=== PATIENT | male | born 1955 | race Caucasian/White ===

== ENCOUNTER 2016-12-03 09:29 | Emergency (ER) | payer OTHER ==
[2016-12-03 09:40] VITALS: BMI 28.0
[2016-12-03 11:23] LABS: BASO % 0.7 % (0.0-2.0); EOS # 0.1 K/uL (0.0-0.7); EOS % 1.1 % (0.0-4.0); HEMATOCRIT 48.3 % (35.0-51.0); LYMPH # 1.3 K/uL (1.0-4.3); LYMPH % 28.1 % (20.0-40.0); MEAN CELL VOLUME 90.8 fL (80.0-94.0); MEAN CORPUSCULAR HEMOGLOBIN 31.2 pg (27.0-31.0); MEAN CORPUSCULAR HGB CONC 34.4 g/dL (33.0-37.0); MEAN PLATELET VOLUME 7.4 fL (7.2-11.7); MONO # 0.4 K/uL (0.0-0.8); NRBC % 0.1 % (0.0-2.0); RED CELL DISTRIBUTION WIDTH 13.1 % (11.5-14.5); WHITE BLOOD COUNT 4.7 K/uL (4.8-10.8)
[2016-12-03 11:27] LABS: RBC URINE 1 /hpf (0-3); URINE BILIRUBIN NEGATIVE (NEGATIVE); URINE BLOOD NEGATIVE (NEGATIVE); URINE COLOR Yellow (YELLOW); URINE GLUCOSE (UA) NORMAL (Normal); URINE KETONE NEGATIVE (NEGATIVE); URINE LEUKOCYTE ESTERASE NEG Leu/uL (Negative); URINE PROTEIN NEGATIVE (NEGATIVE); URINE UROBILINOGEN NORMAL mg/dL (0.2-1.0)
[2016-12-03 11:28] LABS: CHLORIDE 94 mmol/L (98-107); POTASSIUM 4.2 mmol/L (3.6-5.2); SODIUM 134 mmol/L (132-148)
[2016-12-03 11:30] LABS: BILIRUBIN,TOTAL 0.8 mg/dL (0.2-1.3); GFR AFRICAN-AMERICAN > 60
[2016-12-03 11:31] LABS: ALB/GLOB RATIO 1.2 (1.0-2.1); ALKALINE PHOSPHATASE 79 U/L (38-126); ALT/SGPT 48 U/L (21-72); AST/SGOT 52 U/L (17-59); BLOOD UREA NITROGEN 12 mg/dL (9-20); CALCIUM 8.4 mg/dl (8.6-10.4); CARBON DIOXIDE 31 mmol/L (22-30); GLUCOSE,RANDOM 114 mg/dL (75-110); INR 1.1; TOTAL PROTEIN 7.5 g/dL (6.3-8.3)
--- NOTE | 2016-12-03 11:53 | CT ---
PROCEDURE: CT HEAD WITHOUT CONTRAST. HISTORY: near syncope COMPARISON: None available. TECHNIQUE: Axial computed tomography images were obtained through the head/brain without intravenous contrast. Radiation dose: Total exam DLP = 863.09 mGy-cm. This CT exam was performed using one or more of the following dose reduction techniques: Automated exposure control, adjustment of the mA and/or kV according to patient size, and/or use of iterative reconstruction technique. FINDINGS: HEMORRHAGE: No intracranial hemorrhage. BRAIN: No mass effect or edema. The marie-white matter differentiation appears intact. Please note that MRI with diffusion imaging is more sensitive in the detection of acute ischemic event. VENTRICLES: No hydrocephalus. CALVARIUM: Unremarkable. PARANASAL SINUSES: Unremarkable as visualized. No significant inflammatory changes. MASTOID AIR CELLS: Unremarkable as visualized. No inflammatory changes. OTHER FINDINGS: None. IMPRESSION: No acute intracranial pathology identified.
--- NOTE | 2016-12-03 12:53 | C.PDOC ---
History Of Present Illness The patient, a 61 y/o male, presents to the ED for evaluation of lightheaded and dizziness which he experiences with walking for the past week. Patient denies headache, chest pain, shortness of breath, extremity numbness/weakness. Chief Complaint (Nursing): Dizziness/Lightheaded History Per: Patient History/Exam Limitations: no limitations Onset/Duration Of Symptoms: Other (1 week ) Current Symptoms Are (Timing): Still Present Activity At Onset Of Symptoms: Walking Associated Symptoms Preceding Syncopal Episode: No Predromal Symptoms (Sudden Onset) Seizure Or Post-ictal Symptoms: None Possible Causative Factor(s): Lightheaded W/Exertion Fall Associated With With Symptoms: No Additional History Per: Patient Past Medical History Reviewed: Historical Data, Nursing Documentation, Vital Signs Vital Signs: Last Vital Signs Temp 98.2 F 12/03/16 13:36 Pulse 64 12/03/16 13:36 Resp 20 12/03/16 13:36 BP 128/83 12/03/16 13:36 Pulse Ox 96 12/03/16 14:05 - Medical History PMH: COPD, Deep Vein Thrombosis, Sleep Apnea Surgical History: No Surg Hx Family History: States: Unknown Family Hx - Social History Hx Alcohol Use: No Hx Substance Use: No - Immunization History Hx Tetanus Toxoid Vaccination: No Hx Influenza Vaccination: No Hx Pneumococcal Vaccination: No Review Of Systems Except As Marked, All Systems Reviewed And Found Negative. Cardiovascular: Negative for: Chest Pain Respiratory: Negative for: Shortness of Breath Neurological: Positive for: Dizziness, Other (+lightheadedness). Negative for: Weakness, Numbness Physical Exam - Physical Exam Appears: Non-toxic, No Acute Distress Skin: Normal Color, Warm, Dry Head: Atraumatic, Normacephalic Eye(s): bilateral: Normal Inspection, PERRL, EOMI Oral Mucosa: Moist Neck: Normal ROM, Supple Chest: Symmetrical, No Deformity, No Tenderness Cardiovascular: Rhythm Regular, No Murmur Respiratory: Normal Breath Sounds, No Rales, No Rhonchi, No Wheezing Gastrointestinal/Abdominal: Soft, No Tenderness, No Guarding, No Rebound Back: Normal Inspection, No Vertebral Tenderness, No Paraspinal Tenderness Extremity: Normal ROM, Capillary Refill (less than 2 seconds ) Neurological/Psych: Oriented x3, Normal Speech, Normal Cognition, Other (no focal deficits ) Gait: Steady ED Course And Treatment - Laboratory Results Result Diagrams: 12/03/16 11:13 12/03/16 11:13 O2 Sat by Pulse Oximetry: 96 (on RA) Pulse Ox Interpretation: Normal - Other Rad CXR X-Ray: Interpreted by Me, Viewed By Me, Read By Radiologist Interpretation: Accession No. : [id number]. Patient Name / ID : KARY COLES / [id number]. Exam Date : 12/03/2016 11:15:28 ( Approved ). Study Comment : Sex / Age : M / 61Y. Creator : Blane Leon MD. Dictator : Blane Leon MD. Senior Geotechnical Engineer : Service Developer : Blane Leon MD. Approver2 : Report Date : 12/03/2016 13:45:11. My Comment : . PROCEDURE: CHEST RADIOGRAPH, 1 VIEW. HISTORY: near syncope. COMPARISON: 02/19/2016. FINDINGS: LUNGS: Clear. PLEURA: No pneumothorax or pleural fluid seen. CARDIOVASCULAR: No radiographic findings to suggest acute or significant cardiovascular disease. OSSEOUS STRUCTURES: No significant abnormalities. VISUALIZED UPPER ABDOMEN: Normal. OTHER FINDINGS: None. IMPRESSION: No active disease. No acute/significant interval changes. - CT Scan/US CT Head Other Rad Studies (CT/US): Interpreted By Me, Read By Radiologist, Radiology Report Reviewed CT/US Interpretation: Accession No. : [id number]. Patient Name / ID : KARY COLES / [id number]. Exam Date : 12/03/2016 11:44:15 ( Approved ). Study Comment : Sex / Age : M / 61Y. Creator : Lucero Haile MD. Dictator : Lucero Haile MD. Senior Geotechnical Engineer : Service Developer : Lucero Haile MD. Approver2 : Report Date : 12/03/2016 11:52:09. My Comment : . PROCEDURE: CT HEAD WITHOUT CONTRAST. HISTORY: near syncope. COMPARISON : None available. TECHNIQUE: Axial computed tomography images were obtained through the head/brain without intravenous contrast. Radiation dose: Total exam DLP = 863.09 mGy-cm. This CT exam was performed using one or more of the following dose reduction techniques: Automated exposure control, adjustment of the mA and/or kV according to patient size, and/or use of iterative reconstruction technique. FINDINGS: HEMORRHAGE: No intracranial hemorrhage. BRAIN: No mass effect or edema. The marie-white matter differentiation appears intact. Please note that MRI with diffusion imaging is more sensitive in the detection of acute ischemic event. VENTRICLES: No hydrocephalus. CALVARIUM: Unremarkable. PARANASAL SINUSES: Unremarkable as visualized. No significant inflammatory changes. MASTOID AIR CELLS: Unremarkable as visualized. No inflammatory changes. OTHER FINDINGS: None. IMPRESSION: No acute intracranial pathology identified. Progress Note: labs, CT head, CXR, and EKG ordered, results are within normal limits. Pt received Protonix PO. Case discussed with Dr. Chavez, who accepted patient for admission to [facility]. Dr. Livingston evaluated patient at bedside. Patient informed Dr. Livingston that he usually feels dizziniess after walking around [address] Livingston states patient does not require admission at this time. Patient is scheduled for a clinic appointment on 12/09, where he will undergo outpatient workup. Patient was discharged with Rx and advised to keep his scheduled appointment and/or return to the ED if his symptoms worsen. Disposition - Disposition Referrals: [facility] [Outside] Disposition: HOME/ ROUTINE Disposition Time: 12:53 Condition: STABLE Additional Instructions: Follow up with PMD/Clinic within 1-2 days. Return to ED if feel worse. Instructions: Lightheadedness (ED) - Clinical Impression Clinical Impression: Lightheadedness - PA / TIRE ASSEMBLER / Resident Statement MD/DO has reviewed & agrees with the documentation as recorded. - Scribe Statement The provider has reviewed the documentation as recorded by the Scribe (Mariposa Vieira) All medical record entries made by the Scribe were at my direction and personally dictated by me. I have reviewed the chart and agree that the record accurately reflects my personal performance of the history, physical exam, medical decision making, and the department course for this patient. I have also personally directed, reviewed, and agree with the discharge instructions and disposition.
--- NOTE | 2016-12-03 13:04 | CP.PCM.HP ---
History of Present Illness - History of Present Illness History of Present Illness: PMD: Dr. Henning PMH: GERD, Sleep Apnea (uses CPAP) Meds: Zantac, MVM, Vitamin B12 supplement Allergy: NKDA PSH: Denied Hosp: Sleep apnea years ago - was started on CPAP Immunizations/Travel: up to date/Denied recent travel FH: Son of [place], IDDM Social: quit smoking 15 yrs ago (20 pack/yr history), occasional alcohol use, denied illicit drug use Past Patient History - Infectious Disease Hx of Infectious Diseases: None - Past Medical History & Family History Past Medical History?: Yes - Past Social History Smoking Status: Former Smoker - PULMONARY Hx Chronic Obstructive Pulmonary Disease (COPD): Yes Hx Sleep Apnea: Yes - MUSCULOSKELETAL/RHEUMATOLOGICAL Hx Falls: No - GASTROINTESTINAL Hx Gastroesophageal Reflux: Yes - PSYCHIATRIC Hx Substance Use: No - SURGICAL HISTORY Hx Surgeries: No - ANESTHESIA Hx Anesthesia: No Hx Anesthesia Reactions: No Meds Allergies/Adverse Reactions: Allergies Allergy/AdvReac Type Severity Reaction Status Date / Time No Known Allergies Allergy Verified 12/03/16 09:39 Results - Vital Signs Recent Vital Signs: Last Vital Signs Temp 97.5 F L 12/03/16 12:09 Pulse 62 12/03/16 12:09 Resp 16 12/03/16 12:09 BP 126/78 12/03/16 12:09 Pulse Ox 96 12/03/16 12:53 - Labs Result Diagrams: 12/03/16 11:13 12/03/16 11:13 Labs: Laboratory Results - last 24 hr 12/03/16 12/03/16 12/03/16 11:13 11:13 11:13 WBC 4.7 L RBC 5.32 Hgb 16.6 Hct 48.3 MCV 90.8 MCH 31.2 H MCHC 34.4 RDW 13.1 Plt Count 206 MPV 7.4 Neut % (Auto) 61.1 Lymph % (Auto) 28.1 [place] % (Auto) 9.0 Eos % (Auto) 1.1 Baso % (Auto) 0.7 Neut # 2.9 Lymph # 1.3 [place] # 0.4 Eos # 0.1 Baso # 0.0 PT 12.6 H INR 1.1 APTT 35 H Sodium Potassium Chloride Carbon Dioxide Anion Gap BUN Creatinine Est GFR ( Amer) Est GFR (Non-Af Amer) Random Glucose Calcium Total Bilirubin AST ALT Alkaline Phosphatase Total Creatine Kinase CK-MB (Mass) Troponin I Total Protein Albumin Globulin Albumin/Globulin Ratio Urine Color Yellow Urine Clarity Clear Urine pH 8.0 Ur Specific [place] 1.009 Urine Protein Negative Urine Glucose (UA) Normal Urine Ketones Negative Urine Blood Negative Urine Nitrate Negative Urine Bilirubin Negative Urine Urobilinogen Normal Ur Leukocyte Esterase Neg Urine RBC (Auto) 1 12/03/16 11:13 WBC RBC Hgb Hct MCV MCH MCHC RDW Plt Count MPV Neut % (Auto) Lymph % (Auto) [place] % (Auto) Eos % (Auto) Baso % (Auto) Neut # Lymph # [place] # Eos # Baso # PT INR APTT Sodium 134 Potassium 4.2 Chloride 94 L Carbon Dioxide 31 H Anion Gap 13 BUN 12 Creatinine 0.8 Est GFR ( Amer) > 60 Est GFR (Non-Af Amer) > 60 Random Glucose 114 H Calcium 8.4 L Total Bilirubin 0.8 AST 52 ALT 48 Alkaline Phosphatase 79 Total Creatine Kinase 168 CK-MB (Mass) 1.78 Troponin I < 0.0120 Total Protein 7.5 Albumin 4.2 Globulin 3.3 Albumin/Globulin Ratio 1.2 Urine Color Urine Clarity Urine pH Ur Specific [place] Urine Protein Urine Glucose (UA) Urine Ketones Urine Blood Urine Nitrate Urine Bilirubin Urine Urobilinogen Ur Leukocyte Esterase Urine RBC (Auto) Assessment & Plan - Assessment and Plan (Free Text) Plan: Left Lower Extremity DVT Assessment and Plan: Bilateral LE Venous Doppler: (+) Left leg DVT CT Angio Chest: unremarkable, No evidence of PE EKG: NSR at 72 bpm CXR: No active disease Lovenox 80 mg SC Q12H Prophylactic Measures Assessment and Plan: Pepcid 20 mg PO BID SCD contraindicated (LLE DVT)
[2016-12-03 13:37] VITALS: BP 128/83; PULSE 64; RESP 20; TEMP 98.2
--- NOTE | 2016-12-03 13:46 | RAD ---
PROCEDURE: CHEST RADIOGRAPH, 1 VIEW HISTORY: near syncope COMPARISON: 02/19/2016. FINDINGS: LUNGS: Clear. PLEURA: No pneumothorax or pleural fluid seen. CARDIOVASCULAR: No radiographic findings to suggest acute or significant cardiovascular disease. OSSEOUS STRUCTURES: No significant abnormalities. VISUALIZED UPPER ABDOMEN: Normal. OTHER FINDINGS: None. IMPRESSION: No active disease. No acute/significant interval changes.
[2016-12-03 14:06] VITALS: O2SAT 96
[2016-12-04] MEDS ORDERED: Pantoprazole 40 mg EC Tab PO SCH (10:00)
--- NOTE | 2016-12-05 12:08 | CARD ---
APPROVED REPORT EKG Measurement Heart [id number] <Conclusion> Normal sinus rhythm Normal ECG
== END 2016-12-03 14:18 | disposition home or self-care (01) ==
LOC: C.ER 09:29 → C.9E 12:52 → UNDOADMOB 12:52 → C.9E 13:29 → C.5T 13:29 → C.ER 14:18
DX: R42 Dizziness and giddiness (principal)

== ENCOUNTER 2017-07-18 11:25 | Emergency (ER) | payer OTHER ==
[2017-07-18 11:31] VITALS: RESP 18
[2017-07-18] MEDS ORDERED: Sodium Chloride 0.9% 1,000 ML IV ONE (11:54)
--- NOTE | 2017-07-18 11:54 | C.PDOC ---
History Of Present Illness 61-year-old male, presents to the emergency department with complaints to the emergency department with complaints of right-upper quadrant abdominal pain that started one week ago. Patient states pain is worse with eating, and is associated with nausea. Patient was seen at clinic for same complaint. States he is taking Omeprazole at home with minimal relief. Denies any past surgeries, nausea/vomiting, or any other associated symptoms. No other complaints at this time. Time Seen by Provider: 07/18/17 11:31 Chief Complaint (Nursing): Abdominal Pain History Per: Patient History/Exam Limitations: no limitations Past Medical History Reviewed: Historical Data, Nursing Documentation, Vital Signs Vital Signs: Last Vital Signs Temp 98.2 F 07/18/17 13:39 Pulse 60 07/18/17 13:39 Resp 18 07/18/17 13:39 BP 122/72 07/18/17 13:39 Pulse Ox 98 07/18/17 13:39 - Medical History PMH: COPD, Deep Vein Thrombosis, Sleep Apnea Family History: States: No Known Family Hx - Social History Hx Alcohol Use: No Hx Substance Use: No - Immunization History Hx Tetanus Toxoid Vaccination: No Hx Influenza Vaccination: No Hx Pneumococcal Vaccination: No Review Of Systems Except As Marked, All Systems Reviewed And Found Negative. Constitutional: Negative for: Fever Cardiovascular: Negative for: Chest Pain Respiratory: Negative for: Shortness of Breath Gastrointestinal: Positive for: Nausea, Abdominal Pain. Negative for: Vomiting Musculoskeletal: Negative for: Back Pain Physical Exam - Physical Exam Appears: Non-toxic, No Acute Distress Skin: Warm, Dry, No Rash Head: Atraumatic, Normacephalic Eye(s): bilateral: Normal Inspection, PERRL, EOMI Nose: Normal Oral Mucosa: Moist Lips: Normal Appearing Neck: Normal ROM Chest: Symmetrical Cardiovascular: Rhythm Regular, No Murmur Respiratory: Normal Breath Sounds, No Accessory Muscle Use Gastrointestinal/Abdominal: Soft, Tenderness (Mild, RUQ), No Guarding, No Rebound Extremity: Normal ROM Neurological/Psych: Oriented x3, Normal Speech ED Course And Treatment - Laboratory Results Result Diagrams: 07/18/17 12:10 07/18/17 12:10 O2 Sat by Pulse Oximetry: 99 (on RA) Pulse Ox Interpretation: Normal Reevaluation Time: 13:08 Reassessment Condition: Improved (NO SIGNS ACUTE ABD. LABS, US WNL. ADVISED NEED FOR POSISBLE GI EVAL. FU CLINIC) Disposition Counseled Patient/Family Regarding: Studies Performed, Diagnosis, Need For Followup, Rx Given - Disposition Referrals: [facility] [Outside] [facility] [Outside] Disposition: HOME/ ROUTINE Disposition Time: 13:09 Condition: IMPROVED Prescriptions: Sucralfate [Carafate] 1 gm PO QID #30 tab Instructions: Acute Abdominal Pain (ED) Forms: [employer] (Micronesian) - Clinical Impression Clinical Impression: Abdominal pain - Scribe Statement The provider has reviewed the documentation as recorded by the Scribe (See Lara) All medical record entries made by the Scribe were at my direction and personally dictated by me. I have reviewed the chart and agree that the record accurately reflects my personal performance of the history, physical exam, medical decision making, and the department course for this patient. I have also personally directed, reviewed, and agree with the discharge instructions and disposition.
[2017-07-18 11:58] LABS: URINE BILIRUBIN NEGATIVE (NEGATIVE); URINE BLOOD NEGATIVE (NEGATIVE); URINE CLARITY Clear (Clear); URINE COLOR Straw (YELLOW); URINE GLUCOSE (UA) NORMAL (Normal); URINE LEUKOCYTE ESTERASE NEG Leu/uL (Negative); URINE NITRATE NEGATIVE (NEGATIVE); URINE PROTEIN NEGATIVE (NEGATIVE); URINE UROBILINOGEN NORMAL mg/dL (0.2-1.0)
[2017-07-18 12:16] LABS: BASO % 0.5 % (0.0-2.0); EOS # 0.1 K/uL (0.0-0.7); EOS % 3.8 % (0.0-4.0); LYMPH # 1.8 K/uL (1.0-4.3); LYMPH % 45.6 % (20.0-40.0); MEAN CELL VOLUME 91.4 fL (80.0-94.0); MEAN CORPUSCULAR HEMOGLOBIN 32.4 pg (27.0-31.0); MEAN CORPUSCULAR HGB CONC 35.5 g/dL (33.0-37.0); MEAN PLATELET VOLUME 7.4 fL (7.2-11.7); MONO # 0.4 K/uL (0.0-0.8); MONO % 9.3 % (0.0-10.0); NEUT # 1.6 K/uL (1.8-7.0); NEUT % 40.8 % (50.0-75.0); NRBC % 0.1 % (0.0-2.0); RBC 4.92 Mil/uL (4.40-5.90); RED CELL DISTRIBUTION WIDTH 12.7 % (11.5-14.5); WHITE BLOOD COUNT 3.9 K/uL (4.8-10.8)
[2017-07-18 12:25] LABS: ALB/GLOB RATIO 1.3 (1.0-2.1); ALBUMIN 4.1 g/dL (3.5-5.0); ALT/SGPT 53 U/L (21-72); AST/SGOT 50 U/L (17-59); BLOOD UREA NITROGEN 8 mg/dL (9-20); CALCIUM 8.5 mg/dl (8.6-10.4); GFR AFRICAN-AMERICAN > 60; GFR NON-AFRICAN AMERICAN > 60; LIPASE 110 U/L (23-300)
--- NOTE | 2017-07-18 12:33 | US ---
HISTORY: abd pain COMPARISON: None available TECHNIQUE: Sonographic evaluation of the right upper quadrant of the abdomen. FINDINGS: LIVER: Measures 14.3 cm in length. Echogenic liver may be seen in setting of hepatic parenchymal disease or fatty infiltration. No focal hepatic mass identified. The main portal vein appears patent with normal directional flow. No intrahepatic bile duct dilatation. GALLBLADDER: No gallstones. No gallbladder wall thickening or pericholecystic edema. Negative sonographic Garcia's sign as assessed by the recreation therapy teacher. COMMON BILE DUCT: Measures 4 mm. PANCREAS: Not well-visualized. RIGHT KIDNEY: Measures 10.9 x 6.0 x 6.0 cm. No obstructing calculus or hydronephrosis identified. AORTA: Limited visualization appears grossly unremarkable. IVC: Limited visualization appears grossly unremarkable. OTHER FINDINGS: None . IMPRESSION: Echogenic liver may be seen in setting of hepatic parenchymal disease or fatty infiltration.
[2017-07-18 13:40] VITALS: BP 122/72; PULSE 60; TEMP 98.2
[2017-07-18 15:12] VITALS: O2SAT 99
== END 2017-07-18 13:39 | disposition home or self-care (01) ==
LOC: C.ER 11:25
DX: R10.11 Right upper quadrant pain (principal)
CPT/HCPCS: 76705; 80053; 81001; 83690; 85025; 96360; 99284; J7040